=== PATIENT | male | born 1945 | race Caucasian/White ===

== ENCOUNTER 2018-06-30 09:12 | Emergency (ER) | payer MEDICARE ==
[~2018-06-30] VITALS: Ht 167.6 cm; Wt 81.8 kg
[~2018-06-30 09:12] MED LIST: COUMADIN5 MG PO; NO HOME MEDICATIONS
[2018-06-30 09:13] VITALS: TEMP 97.5
[2018-06-30 09:41] LABS: BASO % 0.2 % (0.0-2.0); EOS % 0.2 % (0-4.0); GRAN # 11.6 (1.4-6.5); HEMATOCRIT 44.2 % (42.0-52.0); HEMOGLOBIN 14.8 g/dl (13.5-18.0); LYMPH # 0.9 (1.2-3.4); LYMPH % 6.5 % (20.0-51.0); MEAN CELL VOLUME 97 fl (80.0-100.0); MEAN CORPUSCULAR HEMOGLOBIN 32 pg (27.0-31.0); MEAN CORPUSCULAR HGB CONC 34 g/dl (33.0-37.0); MEAN PLATELET VOLUME 9.4 fl (7.4-10.4); MONO # 0.8 (0.1-0.6); MONO % 5.9 % (1.7-9.3); PLATELET COUNT 219 K/mm3 (130-400); RED BLOOD COUNT 4.58 M/mm3 (4.20-5.60); REDCELL DISTRIBUTION WIDTH-CV 12.7 % (11.5-14.5)
[2018-06-30 09:43] LABS: INR 0.9 (0.8-3.0); PROTHROMBIN TIME 10.7 SECONDS (9.7-12.8)
[2018-06-30 09:44] LABS: ALANINE AMINOTRANSFERASE 10 U/L (21-72); ALBUMIN 4.2 gm/dL (3.5-5.0); ALKALINE PHOSPHATASE 124 U/L (50-136); ANION GAP 12 mmol/L (7-16); AST,SGOT 28 U/L (15-37); BILIRUBIN,TOTAL 0.4 mg/dL (0.0-1.0); BLOOD UREA NITROGEN 16 mg/dL (9-20); CALCIUM 10.2 mg/dL (8.4-10.2); CARBON DIOXIDE 24 mmol/L (22-30); CHLORIDE 102 mmol/L (98-107); CREATININE, serum 0.91 (0.66-1.25); GLUCOSE 110 mg/dL (74-106); POTASSIUM 4.4 mmol/L (3.4-5.0); SODIUM 138 mmol/L (137-145); TOTAL PROTEIN 8.3 gm/dL (6.4-8.2)
[2018-06-30 09:46] LABS: PARTIAL THROMBOPLASTIN TIME 37.6 SECONDS (26.0-37.0)
[2018-06-30 10:01] LABS: TROPONIN-I < 0.012 ng/mL (0.000-0.035)
[2018-06-30 10:15] VITALS: BP 130/62; PULSE 69
== END 2018-06-30 10:30 | disposition short-term general hospital (02) ==
LOC: COL.ER 09:12
PROVIDERS: Family Medicine
DX: I21.3 ST elevation (STEMI) myocardial infarction of unspecified site (principal); F17.210 Nicotine dependence, cigarettes, uncomplicated
CPT/HCPCS: J1170; J1644; J3101; J7030; J7060